=== PATIENT | female | born 1985 ===

== ENCOUNTER 2022-04-06 13:07 | Emergency (ER) | payer OTHER ==
[~2022-04-06] VITALS: Ht 160 cm; Wt 95.3 kg
[2022-04-06] MEDS ORDERED: TETANUS-DIPTH-ACEL PERTUSSIS 0.5ML SYR Tdap IM ONE (14:00)
[2022-04-06] MEDS ORDERED: CEPH-509 PO (14:30)
[2022-04-06] MEDS ORDERED: ACET-1158 PO (14:30)
[2022-04-06 15:47] VITALS: BP 125/74
== END 2022-04-06 15:49 | disposition home or self-care (01) ==
LOC: ER 13:07
DX: S61.012A Laceration without foreign body of left thumb without damage to nail, initial encounter (principal); Z79.899 Other long term (current) drug therapy; W26.0XXA Contact with knife, initial encounter; Y93.89 Activity, other specified; Y92.89 Other specified places as the place of occurrence of the external cause; Y99.8 Other external cause status
CPT/HCPCS: 12001; 90471; 90715; 99283; J2001